=== PATIENT | female | born 1985 | race Two or more races ===

== ENCOUNTER 2019-10-14 11:43 | Day surgery (SDC) | payer OTHER ==
[2019-10-13 17:11] VITALS: BMI 32.9
[2019-10-14] MEDS ORDERED: DEXAMETHASONE SOD PHOSPHATE 4 MG/1 ML VIAL ONE (14:19)
[2019-10-14] MEDS ORDERED: ROCURONIUM BROMIDE 50 MG/5 ML SYRINGE ONE (14:20)
[2019-10-14] MEDS ORDERED: PROPOFOL 20 ML ONE (14:20)
[2019-10-14] MEDS ORDERED: MIDAZOLAM HCL 2 MG/2 ML SINGLE DOSE VIAL ONE (14:20)
[2019-10-14] MEDS ORDERED: ceFAZolin SODIUM 1 GM VIAL ONE ×2 (14:38)
[2019-10-14] MEDS ORDERED: ceFAZolin SODIUM 1 GM VIAL IVPB ONE (14:45)
[2019-10-14] MEDS ORDERED: oxyCODONE HCL 5 MG TABLET PO PRN (15:10)
[2019-10-14] MEDS ORDERED: PROMETHAZINE HCL 25 MG/1 ML VIAL IVPB PRN (15:10)
[2019-10-14] MEDS ORDERED: ONDANSETRON 4 MG/2 ML VIAL IVPUSH PRN (15:10)
[2019-10-14] MEDS ORDERED: ACETAMINOPHEN 1000 MG/100 ML VIAL (NON FORMULARY) IVPB ONE (15:11)
[2019-10-14] MEDS ORDERED: LACTATED RINGERS SOLUTION 1,000 ML IV SCH (15:15)
--- NOTE | 2019-10-14 16:06 | OP ---
Operative Note - Note: Operative Date: 10/14/19 Pre-Operative Diagnosis: iup 7 wks; desire for termination. desire for sterilization Operation: suction D & C. laparoscopy. lysis of adhesions. bilateral salpingectomy Post-Operative Diagnosis: Same as Pre-op (+ extensive pelvic adhesions) Surgeon: Kemar Cali Real Estate Specialist: Luther Jaime Anesthesiologist/AIRSET CASTER: Rocky Chong Anesthesia: General Estimated Blood Loss (mls): 20 Operative Report Dictated: Yes
[2019-10-14] MEDS ORDERED: ACETAMINOPHEN INJECTION 100 ML IVPB ONE (16:37)
[2019-10-14] MEDS ORDERED: oxyCODONE HCL 5 MG TABLET ONE (18:15)
[2019-10-14 19:14] VITALS: BP 126/71; PULSE 81; TEMP 98.2
--- NOTE | 2019-10-15 07:31 | OP ---
DATE OF OPERATION: DATE OF DICTATION: 10/14/2019 PREOPERATIVE DIAGNOSES: 1. Intrauterine at 7 weeks, desire for termination. 2. Desire for permanent sterilization. POSTOPERATIVE DIAGNOSES: 1. Intrauterine at 7 weeks, desire for termination. 2. Desire for permanent sterilization. 3. Extensive pelvic adhesions. OPERATION PERFORMED: 1. Suction dilatation and curettage. 2. Laparoscopy. 3. Lysis of extensive adhesions. 4. Bilateral salpingectomy. SURGEON: Ángel Cali MD BAND SAW OPERATOR CAKE CUTTING: Luther Jaime MD ANESTHESIA: General. ANESTHESIOLOGIST: César Chong MD PROCEDURE AND FINDINGS: Under general anesthesia, in the dorsal lithotomy position, a routine prep and drape was carried out. The bladder was emptied and pelvic examination was performed. The uterus was noted to be indeed 7-weeks' size, anteverted. The cervix was grasped with a tenaculum and dilated. Using suction curette No. 10, suction curettage was carried out and products of conception were removed. Suction curettage alternated with sharp curettage until the uterine cavity was completely empty. A [employer] uterine manipulator was then placed, and the patient was prepped and draped for laparoscopy. The abdomen was entered through an intraumbilical vertical 5-mm incision with a Veress needle and insufflated with carbon dioxide. A 5-mm trocar was placed in the cavity under direct vision. Extensive omental adhesions to the uterus and anterior abdominal wall were noted. The uterus itself was involved with a lot of adhesions and adhered to the anterior abdominal wall. There was no access to either adnexa. Two additional 5-mm ports were placed at the level of the umbilicus, to the left and right. Using LigaSure device, all adhesions were carefully and painstakingly released. The uterus was released and allowed to drop back. The right adnexal area was exposed at that point. The tube was elevated with a grasper and using LigaSure the mesosalpinx was divided. The tube was disconnected from the uterus. It was removed through the 5-mm port and sent for pathology. Access to the left fallopian tube was more difficult. It required rotation of the uterus. The tube was finally identified, freed of adhesions and elevated. It was dissected through the mesosalpinx and detached from the uterus using LigaSure device in similar fashion to the right one. The left tube was also removed through the 5-mm port and sent for pathology. The pelvis was examined. There was no obvious pathology or any bleeding noted. Gas was allowed to escape from the abdomen and all ports were removed under direct vision. The incisions were closed with Dermabond. Sterile bandages were applied. The patient withstood the procedure very well. She was transferred to the PACU stable, comfortable and awake. Estimated blood loss was 20 mL. Anatomy was normal, with both ovaries completely within normal limits and remnants of corpus luteum on the right side. ÁNGEL CALI MD [id number]
--- NOTE | 2019-10-16 18:29 | PATH ---
Surgical Pathology Report Patient Name: ARDEN CHUCRHILL [facility]. Rec. #: [id number] /Age/Gender: 1985 (Age: 34) / F Account: [id number] Location: [facility] SURGICAL Taken: 10/14/2019 Received: 10/15/2019 Reported: 10/16/2019 Physicians: Kemar Cali MD Specimen(s) Received A: PRODUCTS OF CONCEPTION B: FALLOPIAN TUBES, BILATERAL Clinical History Multiparity, Desire for termination, desire for sterilization Final Diagnosis A. PRODUCTS OF CONCEPTION, DILATION AND CURETTAGE: IMMATURE CHORIONIC VILLI CONSISTENT WITH PRODUCTS OF CONCEPTION. B. FALLOPIAN TUBES, BILATERAL, SALPINGECTOMY: FULL LUMINAL PORTION OF UNREMARKABLE FALLOPIAN TUBES (2). UNREMARKABLE UNDESIGNATED FIMBRIATED PORTION OF FALLOPIAN TUBE. Electronically Signed Ebony Camargo M.D. Gross Description A. Received in formalin labeled "products of conception," is a 9.0 x 8.0 x 1.0 cm aggregate of red-brown soft tissue fragments. Villous tissue is identified. No somatic tissue is identified. A administrative representative portion is submitted in one cassette. B. Received in formalin labeled "bilateral fallopian tubes," are 2 undesignated portions of fallopian tube measuring 5.5 and 5.0 cm in length. Neither portion displays attached fimbria. There is a 1.7 x 1.4 x 0.5 cm undesignated portion of fimbria separately received within the same container. The outer surfaces of the fallopian tubes are gunn-pandya and smooth. Sectioning reveals unremarkable lumen. Usability Engineer sections are submitted in 3 cassettes as follows: 1-fimbria; 2-cross sections of longer fallopian tube; 3-cross sections of shorter fallopian tube. DL/10/15/2019 saudi10/15/2019
== END 2019-10-14 19:00 | disposition home or self-care (01) ==
LOC: JASU-SURG 11:43 → MERGE 11:43 → JASU-SURG 19:00
PROVIDERS: ATTEND Specialist
PROC: 10A07Z6 Abortion of Products of Conception, Vacuum, Via Natural or Artificial Opening (ICD-10-PCS; principal; 2019-10-14 13:00)
PROC: 0UT74ZZ Resection of Bilateral Fallopian Tubes, Percutaneous Endoscopic Approach (ICD-10-PCS; 2019-10-14 13:00)
DX: Z33.2 Encounter for elective termination of pregnancy (principal); Z31.0 Encounter for reversal of previous sterilization; N73.6 Female pelvic peritoneal adhesions (postinfective)
CPT/HCPCS: 86850; 86900; 86901; 88302-TC; 88305-TC; 94760; J0131